=== PATIENT | male | born 1995 | race Caucasian/White ===

== ENCOUNTER → 2018-04-13 15:04 | Outpatient (POV) | payer OTHER, SELFPAY | PROVIDERS: Family Provider Family Medicine; Visit Provider Dentist | DX: Z00.00 Encounter for general adult medical examination without abnormal findings (principal) ==

== ENCOUNTER → 2018-04-27 08:11 | Outpatient (POV) | payer OTHER, SELFPAY | PROVIDERS: Visit Provider Dentist | DX: Z00.00 Encounter for general adult medical examination without abnormal findings (principal) ==

== ENCOUNTER 2020-07-05 10:58 | Emergency (ER) | payer SELFPAY ==
[2020-07-05 11:10] VITALS: BP 136/74; PULSE 81; RESP 20; TEMP 37.1; O2SAT 96; BMI 46.0
--- NOTE | 2020-07-05 11:50 | HMH.EDUTC ---
[facility] [place] Disposition Clinical Impression: Viral illness Disposition: Home, Self-Care Condition on Discharge: Good Instructions: DI for Viral Upper Respiratory Infection -- Adult Additional Instructions: No sign of a bacterial infection. Likely viral. Viruses can take 7-14 days to run their course. Nasal saline and bulb syringe or nose Marie to remove nasal drainage to help with nasal congestion. Hard to eat, drink, sleep with nasal congestion so important to keep this cleaned out. Monitor temp. Tylenol or Motrin as needed for pain or fever Encourage fluids, water, Gatorade, Powerade, Pedialyte if /toddler/child Warm salt water gargles Warm fluids Sore throat lozenges Sleep elevated Humidifier/vaporizer Your covid swabwas sent to lab. These results are typically sent to the primary care. Be sure you follow-up in 2-3 days if no improvement so we can review the results and treat if necessary if you do not have a primary care, I recommend to get 1 but in the meantime, call for results. Follow-up immediately for new or worsening symptoms or no noticeable improvement over the next 48-72 hours. self isolate until test results are known Referrals: Monika Gonzales MD [Primary Care Provider] - Forms: Work/School Release Time of Disposition: 11:55 Medical Decision Making - Alessandro Inquiry Pt receiving controlled substance: No Vital Signs: 07/05/20 11:10 Temperature 98.7 F Temperature Source Oral Pulse Rate [Left Brachial] 81 Respiratory Rate 20 Blood Pressure [Left Arm] 136/74 Blood Pressure Mean [Left Arm] 94 Blood Pressure Source [Left Arm] Automatic Cuff Blood Pressure Position [Left Arm] Sitting 02 Sat by Pulse Oximetry 96 Oxygen Delivery Method Room Air [facility] [place] HPI - General Chief complaint: Urgent Treatment Center Stated complaint: cough,SOA,headache Time Seen by Provider: 07/05/20 11:50 Mode of Arrival: Ambulatory Source of Information: Patient Limitations: No Limitations Description of Symptoms (Recalled from Triage Doc. by RN): PATIENT C/O MILD FEVER, VOMITING, BODY ACHES, CHILLS, CONGESTION, AND RIGHT EAR PAIN X 2 DAYS HEENT Symptoms (Recalled from RN notes): Yes Resp Symptoms (Recalled from RN notes): Yes Skin Symptoms (Recalled from RN notes): No MS Symptoms (Recalled from RN notes): No Functional Status (Recalled from RN notes): WNL - History of Present Illness Provider Complaint: 25 yr old male presents for sore throat, fever 99.8,headache,soa, chills.body aches and fatigue since thurs - Related Data Home Medications Medication Instructions Recorded Confirmed No Known Home Medications 07/29/19 07/05/20 Allergies Allergy/AdvReac Type Severity Reaction Status Date / Time No Known Allergies Allergy Verified 07/29/19 11:19 - Worker's Comp Is this a Worker's Comp case?: No [facility] History - Hepatitis A Screen Drug use history?: No High risk sexual behaviors?: No History of sexually transmitted infection?: No Currently employed?: No Childcare worker?: No Do you have indoor plumbing?: Yes Do you have electricity?: Yes Attestation statement:: This patient has been screened for Hepatitis A risk factors. I have reviewed the patient's past medical history: Yes - Social History Smoking Status: Never smoker Alcohol Intake: never Occupational Status: other ROS Obtained: Yes Systems reviewed as appropriate & no additional complaints - Constitutional Constitutional: Reports system reviewed and no additional complaints, except as docu, Reports body ache, Reports chills, Reports fatigue, Reports fever(s) - Eyes Eyes: Reports system reviewed and no additional complaints, except as docu, Denies dry eyes - ENT Ears, Nose, Mouth, and Throat: Reports system reviewed and no additional complaints, except as docu, Denies facial pain - Cardiovascular Cardiovascular: Reports system reviewed and no additional complaints, except as docu, Denies dyspnea on exertion - Respiratory Resp
[2020-07-05 11:52] VITALS: BP 136/74; PULSE 81; RESP 20; TEMP 37.1; O2SAT 96
--- NOTE | 2020-07-05 18:50 | PC.NURSE ---
patient notified of positive results
[2020-07-05 19:01] LABS: UTC Influenza A Antigen Negative (Negative); UTC Influenza B Antigen Negative (Negative)
== END 2020-07-05 11:59 | disposition home or self-care (01) ==
PROVIDERS: Emergency Provider Nurse Practitioner Family; PCP Family Medicine
DX: U07.1 COVID-19 (principal); B34.9 Viral infection, unspecified
CPT/HCPCS: 87804; 99201; U0003

== ENCOUNTER 2024-09-24 08:49 | Inpatient (IN) | payer BC, SELFPAY ==
[2024-09-24] VITALS (8 sets, daily range): BP systolic 135–185; BP diastolic 68–109; PULSE 102–121; RESP 18–20; TEMP 36.8–37.3; O2SAT 94–100; BMI 54.2; BMI 55.5
--- NOTE | 2024-09-24 09:21 | US_ITS ---
FINAL REPORT CLINICAL HISTORY: RUQ pain, N/V COMPARISON: None FINDINGS: Sonographic images of the right upper quadrant were obtained. The pancreas is partially obscured. There is fatty infiltration of the liver. The gallbladder appears normal without evidence of gallstones.There is no evidence of biliary ductal dilatation.The common duct measures 3 mm. Limited images of the right kidney are unremarkable. IMPRESSION: Fatty changes of the liver. Reviewed, Interpreted and Dictated by Jeff Lugo MD Transcribed by Floresita Simon Authenticated and [facility]
--- NOTE | 2024-09-24 09:23 | ED_ITS ---
Discharge Plan Disposition Patient Disposition: Admitted Condition: Fair Clinical Impressions Clinical Impression: Acute pancreatitis Discharge ED Provider: Elías Coleman General Adult HPI General Chief complaint: Abdominal Pain Stated complaint: abd pain/vomiting x 4 days Time Seen by Provider: 09/24/24 09:15 Mode of Arrival: Ambulatory Source of Information: Patient Limitations: No Limitations Description of Symptoms (Recalled from ER Triage Doc. by RN): ABD PAIN X3-4 DAYS, STARTED VOMITING THIS AM. STATES HE IS HAVING UPPER ABD PAIN THAT IS SHARP AT TIMES. History of Present Illness HPI narrative: Filipe Ramírez is a 29M with no significant past medical history who presents to the emergency department for complaints of upper abdominal pain, nausea and vomiting. Patient states that starting 3 days ago, he developed left upper and right upper quadrant abdominal pain that is sharp in nature. He states that starting today, he is had multiple episodes of nausea and vomiting. He last ate oatmeal last night and that eating seems to make the pain worse. He describes his vomitus as orange in color. He denies any fevers. He states that he does not drink alcohol and has not had issues with his pancreas before. He denies any abdominal surgeries. He denies any diarrhea. He denies any no known sick contacts. Related Data Home Medications ?Medication ?Instructions ?Recorded ?Confirmed No Known Home Medications 07/29/19 09/24/24 Allergies Allergy/AdvReac Type Severity Reaction Status Date / Time No Known Allergies Allergy Verified 09/02/20 16:41 [facility] Disclaimer: The information contained in this section may have been updated after the patient was seen, as this information can be updated by other users. Medical History Left leg injury No significant past medical history Family History Other Prostate cancer Social History Smoking Status: Never smoker alcohol intake: never substance use type: denies use current occupational status: employed Travel in the last 8 weeks: None Have you lived/traveled outside [place] in past 30 days?: No Contact w/someone who lives/traveled outside US past 30 days?: No Exposure to someone with infectious disease in past 14 days?: No Do you have a fever (greater than 100.4 F or 38 C)?: No Have you tested positive for COVID-19: No Exposed to someone with COVID-19 in past 14 days?: No Do you have a sore throat?: No Do you have a cough?: No Do you have any weakness?: No Do you have any diarrhea?: No Are you experiencing any unusual bleeding?: No Do you have any muscle aches/pain?: No Do you have any abdominal pain?: Yes Are you experiencing loss of taste or smell?: No Other Medical History Have you received the Pneumonia Vaccine: No ROS Obtained: Yes Systems reviewed as appropriate & no additional complaints except as documented Physical Exam General General appearance: alert and in no apparent distress Comment: Appears uncomfortable Head Head exam: atraumatic Eye Eye exam: Present normal appearance ENT ENT exam: Present normal external ear exam Neck Neck exam: Present full ROM Chest Chest inspection: Present symmetric chest wall rise Respiratory Respiratory exam: Present normal lung sounds bilaterally; Absent respiratory distress, wheezes or stridor Cardiovascular Cardiovascular exam: Present regular rate and normal rhythm Abdominal Exam Abdominal exam: Present soft, tenderness (Epigastric and right upper quadrant. Positive Pickard sign) and guarding (Focal in RUQ) exam: Present deferred Extremities Exam Extremities exam: Present normal inspection Back Exam Back exam: Present normal inspection Neurological Exam Neurological exam: Present alert and oriented X3 Psychiatric Psychiatric exam: Present normal affect Skin Skin exam: Present warm and dry Medical Decision Making Medical Records Screening: Per USPSTF and CDC recommendations, given the prevalence of disease in our region, it is our hospital?s policy to screen for HIV and viral Hepatitis for all patients aged 18 and over and those with ongoing risk factors. Alessandro Inquiry Pt receiving controlled substance: No Vital Signs: 09/24/24 08:56 09/24/24 09:01 09/24/24 12:16 Temperature 99.0 F 99.0 F Temperature Source Oral Oral Pulse Rate 106 H 102 H Pulse Rate [Right Radial] 106 H Respiratory Rate 20 20 Blood Pressure 153/109 H 185/83 H Blood Pressure [Left Arm] 153/109 H Blood Pressure Mean [Left Arm] 123 Blood Pressure Source Automatic Cuff Blood Pressure Source [Left Arm] Automatic Cuff Blood Pressure Position Sitting Blood Pressure Position [Left Arm] Sitting 02 Sat by Pulse Oximetry 97 97 100 Oxygen Delivery Method Room Air Room Air Room Air 09/24/24 12:57 Temperature 99.0 F Temperature Source Pulse Rate 102 H Pulse Rate [Right Radial] Respiratory Rate 20 Blood Pressure 185/83 H Blood Pressure [Left Arm] Blood Pressure Mean [Left Arm] Blood Pressure Source Blood Pressure Source [Left Arm] Blood Pressure Position Blood Pressure Position [Left Arm] 02 Sat by Pulse Oximetry Oxygen Delivery Method Lab Data Lab Results 09/24/24 09:21: VBG pH 7.39, VBG pCO2 40.4, VBG pO2 42.8 H, VBG HCO3 23.9, VBG Total CO2 25.1, VBG O2 Saturation 82.0 H, VBG Base Excess -1.1, VBG Lactic Acid 1.4 09/24/24 10:06: Lactate Dehydrogenase 205 L 09/24/24 10:26: WBC 19.0 H, RBC 5.16, Hgb 14.3, Hct 43.7, MCV 84.7, MCH 27.7, MCHC 32.7, RDW 13.0, Plt Count 327, MPV 10.3, Neut % (Auto) 76.3, Lymph % (Auto) 13.9, [place] % (Auto) 7.5, Eos % (Auto) 1.3, Baso % (Auto) 0.4, Neut # (Auto) 14.5 H, Lymph # (Auto) 2.7, [place] # (Auto) 1.4 H, Eos # (Auto) 0.2, Baso # (Auto) 0.1, Total Counted 100, Neutrophils % (Manual) 81 H, Lymphocytes % (Manual) 13, Monocytes % (Manual) 5, Eosinophils % (Manual) 1, Platelet Estimate Normal, RBC Morphology Normal, PT 9.8, INR 0.88 L, Sodium 136, Potassium 4.4, Chloride 104, Carbon Dioxide 27, Anion Gap 9.4, BUN 9, Creatinine 0.80, Estimated Creat Clear 151, Estimated GFR 115, Est GFR ( Amer) 139, Glucose 121 H, Calcium 9.6, Total Bilirubin 0.5, AST 26, ALT 30, Alkaline Phosphatase 88, Total Protein 8.6 H, Albumin 4.8, Globulin 3.8 H, Albumin/Globulin Ratio 1.3, Triglycerides 100, C holesterol 204 H, LDL Cholesterol Direct 121.87, VLDL Cholesterol 20, HDL Cholesterol 38 L, Cholesterol/HDL Ratio 5.4 H, Lipase 2447 H, HCV Ab SHAHRAM w/Rflx PCR Qn Negative, HIV Ag/Ab Combo Qual Negative 09/24/24 10:36: SARS-CoV-2 (PCR) Not detected, Influenza A Untype (PCR) Not detected, Influenza Type B (PCR) Not detected 09/24/24 10:26 09/24/24 10:26 Orders (Tests/Meds): ED MEDICATIONS Generic Name Dose Route Start Last Admin Trade Name Freq PRN Reason Stop Dose Admin Enoxaparin Sodium 40 mg 09/24/24 21:00 Enoxaparin 40mg/0.4ml Syringe SUBCUT 10/24/24 20:59 BID ANDRES Lactated Ringer's 1,000 mls @ 100 mls/hr 09/24/24 12:30 09/24/24 13:34 Lactated Ringer's 1000 Ml Bag IV 10/24/24 12:29 100 mls/hr .Q10H ANDRES Administration Morphine Sulfate 4 mg 09/24/24 12:20 Morphine 4mg/Ml Syringe IV 10/24/24 12:19 Q4HP PRN Severe Pain (7-10) Ondansetron HCl 4 mg 09/24/24 12:20 09/24/24 15:25 Ondansetron 4mg/2ml Vial IV 10/24/24 12:19 4 mg Q8HP PRN Administration Nausea Oxycodone/Acetaminophen 1 each 09/24/24 14:50 Oxycodone 5mg W/Apap 325mg Tablet PO 10/24/24 14:49 Q4HP PRN Moderate to Severe Pain (4-10) Sodium Chloride 10 ml 09/24/24 12:30 Sodium Chloride 0.9% 10ml Flush Syringe IV 10/24/24 12:29 NEEDED PRN Maintain IV Site Discontinued Medications Generic Name Dose Route Start Last Admin Trade Name Freq PRN Reason Stop Dose Admin Lactated Ringer's 1,000 mls @ 999 mls/hr 09/24/24 11:25 09/24/24 11:46 Lactated Ringer's 1000 Ml Bag IV 09/24/24 12:25 999 mls/hr .Q1H1M ONE Administration Iopamidol 75 ml 09/24/24 11:40 09/24/24 11:41 Iopamidol-370 (76%);100ml Bottle IV 09/24/24 11:41 75 ml ONCE ONE Administration Morphine Sulfate 2 mg 09/24/24 09:21 09/24/24 10:06 Morphine 2mg/Ml Syringe IV 09/24/24 09:22 2 mg ONCE ONE Administration Morphine Sulfate 4 mg 09/24/24 11:25 09/24/24 11:46 Morphine 4mg/Ml Syringe IV 09/24/24 11:26 4 mg ONCE ONE Administration Ondansetron HCl 4 mg 09/24/24 09:21 09/24/24 10:06 Ondansetron 4mg/2ml Vial IV 09/24/24 09:22 4 mg ONCE ONE Administration Sodium Chloride 10 ml 09/24/24 11:40 09/24/24 11:41 Sodium Chloride 0.9% 10ml Syr (Rad Only) IV 10/24/24 11:39 10 ml NEEDED PRN Administration Maintain IV Site ORDERS Category Date Time Status CT abdomen pelvis w con Stat Cat Scan 09/24/24 11:25 Completed GI consult [Consult to Gastroenterology] [CONS] Routine Cons 09/24/24 12:20 Active US gallbladder Stat Exams 09/24/24 09:21 Completed CBC w/Auto Diff [Complete Blood Count Auto Diff] Stat Lab 09/24/24 10:26 Completed CMP [Comprehensive Metabolic Panel] Stat Lab 09/24/24 10:26 Completed Complete Blood Count Auto Diff AMLAB Lab 09/25/24 06:00 Ordered Comprehensive Metabolic Panel AMLAB Lab 09/25/24 06:00 Ordered HIV Combo Routine Lab 09/24/24 10:26 Completed Hepatitis C Ab Qual. W/ RFX Routine Lab 09/24/24 10:26 Completed LDH [Lactate Dehydrogenase] Stat Lab 09/24/24 10:06 Completed Lipase Stat Lab 09/24/24 10:26 Completed Lipid Panel Stat Lab 09/24/24 10:26 Completed Magnesium AMLAB Lab 09/25/24 06:00 Ordered PT INR [Prothrombin Time INR] Stat Lab 09/24/24 10:26 Completed Rapid PCR Covid and Flu A/B Stat Lab 09/24/24 10:36 Completed VBG [Venous Blood Gas] Stat RT 09/24/24 09:21 Completed Medical Decision Narrative: Filipe Ramírez is a 29M with no significant past medical history, not on any medication, who presents to the emergency department for complaints of upper abdominal pain that is sharp in nature as well as nausea and vomiting. States that the pain is sometimes worsened with eating. He has never had issues like this before in the past. No abdominal surgeries. On arrival, patient is borderline tachycardic but hemodynamically stable. Afebrile. Breathing comfortably on room air. Physical exam, stated above, revealed an overall uncomfortable but nontoxic-appearing male. He has tenderness palpation in all upper quadrants and epigastric region but more focally in the right upper quadrant with positive Pickard sign. Cardiopulmonary exam is unremarkable. Differential diagnosis includes, but is not limited to: Acute pancreatitis, gallstone pancreatitis, choledocholithiasis, acute cholecystitis, biliary colic, peptic ulcer disease, gastritis, among others. Patient's workup in the emergency department included: Gallbladder ultrasound, CMP, CBC, lipase, PT/INR, VBG, COVID/flu swab. Patient was initially treated with IV morphine. Patient's gallbladder ultrasound interpreted by me personally shows evidence of fatty liver but no gallstones within the gallbladder, no dilation of the bile duct, no pericholecystic fluid or gallbladder wall thickening. See radiology report for details. Patient's laboratory studies with leukocytosis of white blood cell count of 19, lactate normal at 1.4, CMP unremarkable and nonactionable with liver enzymes within normal limits. Lipase is significantly elevated 2447. A viral panel is negative. At this point, triglyceride level and cholesterol studies were added. Patient's triglycerides are normal at 100 the patient's total cholesterol is elevated 204 and HDL is low at 38. To rule out necrotizing pancreatitis versus pancreatic abscess, will obtain CT abdomen pelvis with IV contrast. This was interpreted by me personally and demonstrated peripancreatic fat stranding but no evidence of necrotizing pancreatitis or abscess. See radiology report for details. Patient is continuing to have abdominal pain we will give an additional dose of morphine. Due to patient's acute pancreatitis of unknown etiology and continued pain, discussed the patient's case with Dr. Woods for admission and he agreed to admit the patient. Patient was subsequently admitted to the hospital medicine service. Critical Care Critical Care Time Critical Care Time: No
[2024-09-24] MEDS: ONDANSETRON 4MG/2ML VIAL 4 MG IV ×2 (10:06→15:25)
[2024-09-24] MEDS: MORPHINE 2MG/ML SYRINGE 2 MG IV (10:06)
[2024-09-24 10:35] LABS: Basophils # 0.1 K/mm3 (0-0.2); Basophils % 0.4 % (0.1-2.0); Eosinophils # 0.2 K/mm3 (0.0-0.4); Eosinophils % 1.3 % (0.1-12.0); Hematocrit 43.7 % (42.0-52.0); Hemoglobin 14.3 g/dL (14.1-18.0); Lymphocytes # 2.7 K/mm3 (0.7-4.5); Lymphocytes % 13.9 % (10-50); Mean Corpuscular HGB Conc 32.7 g/dL (31.8-35.4); Mean Corpuscular Hemoglobin 27.7 pg (27.0-31.2); Mean Corpuscular Volume 84.7 fl (80-94); Mean Platelet Volume 10.3 fl (7.4-10.4); Monocytes # 1.4 K/mm3 (0.1-1.0); Monocytes % 7.5 % (1.7-9.3); Neutrophils # 14.5 K/mm3 (1.8-7.8); Neutrophils % 76.3 % (37.0-80.0); Platelet Count 327 K/mm3 (142-424); Red Blood Count 5.16 M/mm3 (4.60-6.20)
[2024-09-24 10:36] LABS: Lactate Venous 1.4 mmol/L (0.4-2.0); VBG Base Excess -1.1 mmol/L (-2.4-2.3); VBG HCO3 23.9 mmol/L (23-30); VBG PCO2 40.4 mmol/L (35-51); VBG PH 7.39 mmol/L (7.31-7.41); VBG PO2 42.8 mmol/L (28-40); VBG Total CO2 25.1 mmol/L (23-27)
[2024-09-24 10:38] LABS: Coronavirus 19, PCR Not Detected (NotDetected); Influenza A, PCR Not Detected (NotDetected); Influenza B, PCR Not Detected (NotDetected)
[2024-09-24 10:44] LABS: MANUAL DIFFERENTIAL MANUAL DIFFERENTIAL (MANUAL DIFF)
[2024-09-24 10:59] LABS: Alanine Aminotransferase 30 U/L (12-78); Albumin Level 4.8 g/dl (3.5-5.0); Albumin/Globulin Ratio 1.3 (1.1-1.8); Alkaline Phosphatase 88 U/L (38-126); Anion Gap 9.4 mEq/L (5-15); Aspartate Amino Transferase 26 U/L (17-59); Bilirubin,Total 0.5 mg/dl (0.2-1.3); Blood Urea Nitrogen 9 mg/dl (9-20); Calcium 9.6 mg/dl (8.4-10.2); Carbon Dioxide 27 mmol/L (22.0-30.0); Chloride 104 mmol/L (98-107); Creatinine Clearance Estimated 151 mL/min (50-200); Estimated Glomerular Filt Rate 115 ml/min (>60); GFR (African American) 139 ML/MIN (>60); Globulin 3.8 g/dL (1.3-3.2); Glucose 121 mg/dl (74-100); Potassium 4.4 mmoL/L (3.5-5.1); Sodium 136 mmol/L (136-145); Total Protein,Serum 8.6 g/dl (6.3-8.2)
--- NOTE | 2024-09-24 11:11 | PC.NURSE ---
notified MD cooper lipase
--- NOTE | 2024-09-24 11:25 | CT_ITS ---
FINAL REPORT TECHNIQUE: Oral and IV contrast enhanced exam. This study was performed with techniques to keep radiation doses as low as reasonably achievable, (ALARA). Individualized dose reduction techniques using automated exposure control or adjustment of mA and/or kV according to the patient''s size were employed. CLINICAL HISTORY: Acute pancreatitis COMPARISON: none FINDINGS: Abdomen: No acute density is seen within the lung bases. There is diffuse pancreatic edema with surrounding stranding compatible with pancreatitis. There is no evidence of pancreatic necrosis or pseudocyst. There is no evidence of pancreatic or biliary ductal dilatation. Remaining solid organs are negative. No bowel obstruction is present. There is no free air. No fluid collection is seen. There is no adenopathy. Pelvis: The appendix is normal. Pelvic bowel loops are unremarkable. There is no free fluid. No pelvic mass is seen. IMPRESSION: Uncomplicated pancreatitis. Reviewed, Interpreted and Dictated by Jeff Lugo MD Transcribed by Francisca Hassan Authenticated and . [facility]
[2024-09-24 11:32] LABS: INR 0.88 (0.9-1.1); Prothrombin Time 9.8 seconds (9.2-12.1)
[2024-09-24 11:37] LABS: Lipase 2447 U/L (23-300)
[2024-09-24] MEDS: SODIUM CHLORIDE 0.9% 10ML SYR (RAD ONLY) 10 ML IV (11:41)
[2024-09-24] MEDS: IOPAMIDOL-370 (76%);100ML BOTTLE 75 ML IV (11:41)
[2024-09-24 11:46] LABS: HIV Combo NEGATIVE (Negative)
[2024-09-24] MEDS: LACTATED RINGERS 1000ML 1,000 ML 999 ML IV (11:46)
[2024-09-24] MEDS: MORPHINE 4MG/ML SYRINGE 4 MG IV ×2 (11:46→18:22)
--- NOTE | 2024-09-24 11:53 | PC.NURSE ---
1148- Rounding completed, morphine and LRS administered per order. Patient expresses no needs at this time.
[2024-09-24 11:56] LABS: Hepatitis C Ab Qual. W/ RFX NEGATIVE (Negative)
[2024-09-24 12:08] LABS: Eosinophils % 1 % (0-3); Lymphocytes % 13 % (10-50); Monocytes % 5 % (2-9); Neutrophils % 81 % (42-76); Platelet Estimate Normal; RBC Morphology Normal; Total Cells Counted 100
--- NOTE | 2024-09-24 12:19 | PC.NURSE ---
ER on phone with hospitalist
--- NOTE | 2024-09-24 12:22 | PC.NURSE ---
housekeeper head aware of admission
--- NOTE | 2024-09-24 12:24 | EXP.HP ---
History of Present Illness *Admission Date: 09/24/24 *Reason for visit:: abdominal pain, N/V *History of present illness: Mr. Ramírez is a 29-year-old male with no significant past medical history. Morbidly obese. Presents with onset of abdominal pain Tuesday. Began in his abdomen, radiates to his back. Developed nausea and vomiting today. Denies maria d fever. No new medications. Takes no prescription medications at home. Workup in the ER concerning for pancreatitis with elevated lipase and imaging concerning for peripancreatic fat stranding. Medicine consulted for admission and further management. On arrival to the floor, he is afebrile and hemodynamically stable. Tolerating Jell-O without significant worsening of pain. Received benefit from morphine. No nausea or vomiting at this moment. Stable on room air. Mother at bedside [facility] Disclaimer: The information contained in this section may have been updated after the patient was seen, as this information can be updated by other users. Medical History Left leg injury No significant past medical history Family History Other Prostate cancer Social History Smoking Status: Never smoker alcohol intake: never substance use type: denies use current occupational status: employed Travel in the last 8 weeks: None Have you lived/traveled outside US in past 30 days?: No Contact w/someone who lives/traveled outside US past 30 days?: No Exposure to someone with infectious disease in past 14 days?: No Do you have a fever (greater than 100.4 F or 38 C)?: No Have you tested positive for COVID-19: No Exposed to someone with COVID-19 in past 14 days?: No Do you have a sore throat?: No Do you have a cough?: No Do you have any weakness?: No Do you have any diarrhea?: No Are you experiencing any unusual bleeding?: No Do you have any muscle aches/pain?: No Do you have any abdominal pain?: Yes Are you experiencing loss of taste or smell?: No Other Medical History Have you received the Pneumonia Vaccine: No Review of Systems Review of Systems Review of systems (narrative): 14 point review of systems performed, pertinent positives and negatives as per HPI Meds Home Medications and Allergies Home Medications ?Medication ?Instructions ?Recorded ?Confirmed ?Type No Known Home Medications 07/29/19 09/24/24 History New Prescriptions to Start Prescriptions: Allergies Allergy/AdvReac Type Severity Reaction Status Date / Time No Known Allergies Allergy Verified 09/02/20 16:41 Exam Data for Last 24 hours Vital signs and Labs for Last 24 Hours: Temp Pulse Resp BP Pulse Ox O2 Del Method 99.0 F 102 H 20 185/83 H 100 Room Air 09/24/24 09:01 09/24/24 12:16 09/24/24 09:01 09/24/24 12:16 09/24/24 12:16 09/24/24 12:16 Laboratory Results - last 24 hr 09/24/24 09:21: VBG pH 7.39, VBG pCO2 40.4, VBG pO2 42.8 H, VBG HCO3 23.9, VBG Total CO2 25.1, VBG O2 Saturation 82.0 H, VBG Base Excess -1.1, VBG Lactic Acid 1.4 09/24/24 10:26: WBC 19.0 H, RBC 5.16, Hgb 14.3, Hct 43.7, MCV 84.7, MCH 27.7, MCHC 32.7, RDW 13.0, Plt Count 327, MPV 10.3, Neut % (Auto) 76.3, Lymph % (Auto) 13.9, [place] % (Auto) 7.5, Eos % (Auto) 1.3, Baso % (Auto) 0.4, Neut # (Auto) 14.5 H, Lymph # (Auto) 2.7, [place] # (Auto) 1.4 H, Eos # (Auto) 0.2, Baso # (Auto) 0.1, Total Counted 100, Neutrophils % (Manual) 81 H, Lymphocytes % (Manual) 13, Monocytes % (Manual) 5, Eosinophils % (Manual) 1, Platelet Estimate Normal, RBC Morphology Normal, PT 9.8, INR 0.88 L, Sodium 136, Potassium 4.4, Chloride 104, Carbon Dioxide 27, Anion Gap 9.4, BUN 9, Creatinine 0.80, Estimated Creat Clear 151, Estimated GFR 115, Est GFR ( Amer) 139, Glucose 121 H, Calcium 9.6, Total Bilirubin 0.5, AST 26, ALT 30, Alkaline Phosphatase 88, Total Protein 8.6 H, Albumin 4.8, Globulin 3.8 H, Albumin/Globulin Ratio 1.3, Lipase 2447 H, HCV Ab SHAHRAM w/Rflx PCR Qn Negative, HIV Ag/Ab Combo Qual Negative 09/24/24 10:36: SARS-CoV-2 (PCR) Not detected, Influenza A Untype (PCR) Not detected, Influenza Type B (PCR) Not detected I & O for Last 24 hours: Intake & Output 09/21/24 09/22/24 09/23/24 09/24/24 23:59 23:59 23:59 23:59 Weight 181.437 kg Constitutional Constitutional: mild distress, morbidly obese and cooperative *Routine HEENT Exam Head: Present normocephalic Eye: Present EOMI and PERRL ENT: Present mucous membranes moist *Routine Neck Exam Neck: Present supple; Absent lymphadenopathy *Routine Respiratory Exam Respiratory: Present CTA bilaterally; Absent respiratory distress, rhonchi, stridor, wheezes or crackles *Routine Cardiovascular Exam Cardiovascular: Present RRR *Routine Abdominal Exam Abdominal: Present soft, normoactive bowel sounds and tenderness (Significant left upper quadrant, questionable rebound); Absent distended *Routine Rectal Exam Rectal:: deferred *Routine Genitalia Exam Genitalia:: deferred *Routine Extremities Exam Extremities: Absent cyanosis, clubbing or edema *Routine Skin Exam Skin: Present intact and warm; Absent rash *Routine Neurological Exam Neurological: Present alert, oriented X3 and moving all extremities; Absent altered mental status Assessment and Plan *Assessment and plan (1) Acute pancreatitis: Status: Acute Category: Medical Code(s): K85.90 - Acute pancreatitis without necrosis or infection, unspecified (2) Morbid obesity with BMI of 50.0-59.9, adult: Status: Acute Category: Medical Code(s): E66.01 - Morbid (severe) obesity due to excess calories; Z68.43 - Body mass index [BMI] 50.0-59.9, adult Plan 29-year-old who presents with acute pancreatitis to the ER. Symptoms developed Tuesday, pain is gotten worse with onset of nausea and vomiting today. Discussed case with ER physician, unclear etiology, request admission for further management, pain control, workup with GI. I agreed to admit for further care. Multimodal pain control. Continue IV fluids. Clear diet for today. GI consulted to assist with care. Problems addressed as follows: Acute pancreatitis -Triglycerides 100, patient does not drink alcohol, denies any medications. No recent GLP-1 per his report. Ultrasound obtained in the ER with no gallstone disease. Unclear etiology at this time -GI consulted to assist with care, appreciate their recommendations -Clear liquid diet, monitor tolerance -IV morphine 4 mg as needed every 4 hours and oral oxycodone 5 mg as needed every 4 hours. Monitor for toxicity. -CT per my review showing uncomplicated pancreatitis. Minimal stranding around pancreas. No biliary dilatation -LR to 100 cc an hour. -LDH 205; Low risk for severe pancreatitis at this time - White count elevated 19, likely reactive. Hemoglobin normal at 14.3. Electrolytes normal sodium 136, potassium 4.4, kidney function normal with BUN 9, creatinine 0.8. Glucose 121. No history of diabetes. Liver enzymes normal with bilirubin 0.5, AST 26, ALT 30, alk phos 88. -Lipase 2447 -Repeat CBC, CMP, magnesium ordered for the morning Morbid obesity complicates all aspects of his care Elevated blood pressure, suspect pain response. Will monitor closely however. 148/82. Mild tachycardia response to pain as well Full code Clear liquid diet Lovenox 40 mg SQ twice daily
--- NOTE | 2024-09-24 12:26 | PC.NURSE ---
Milli Ralph RN is going to update pts Mother who is out in the lobby of POC
[2024-09-24 12:30] LABS: Chol/HDL Ratio 5.4 (1-3.5); Cholesterol 204 mg/dl (140-200); HDL Cholesterol 38 mg/dl (40-60); Triglycerides 100 mg/dl (30-150); VLDL Cholesterol 20 mg/dL (0-40)
--- NOTE | 2024-09-24 12:37 | PC.NURSE ---
Report called to Sera CUI
[2024-09-24 12:42] LABS: Direct LDL Cholesterol 121.87 mg/dL (100-129)
--- NOTE | 2024-09-24 12:46 | PC.NURSE ---
pt going to 2nd floor via wheelchair with SRNA.
--- NOTE | 2024-09-24 12:50 | PC.NURSE ---
arrived by w/c from ED
[2024-09-24 13:20] LABS: Lactate Dehydrogenase 205 U/L (313-618)
[2024-09-24] MEDS: LACTATED RINGERS 1000ML 1,000 ML 100 ML IV ×2 (13:34→22:48)
--- NOTE | 2024-09-24 13:35 | PC.NURSE ---
Dr. Woods at bedside
--- NOTE | 2024-09-24 16:07 | PC.NURSE ---
Patient alert and oriented. VSS. Zofran for episode of emesis. Morphine for abdominal pain. Up ad nando. Voiding adequately. Continue IV fluids and clear liquid diet. Awaiting GI consult
[2024-09-24] MEDS: ENOXAPARIN 40MG/0.4ML SYRINGE 40 MG SUBCUT (20:51)
[2024-09-25] MEDS: MORPHINE 4MG/ML SYRINGE 4 MG IV ×3 (03:22→13:46)
[2024-09-25 04:00] VITALS: BMI 55.4
--- NOTE | 2024-09-25 04:42 | PC.NURSE ---
Pt is A/O X 4, he is independent with ambulation and has been going ad nando to BR throughout the shift. Pt was medicated with Morphine X 1 for report of abdominal pain which was effective. He has tolerated clear liquid diet. He has slept on and off through the night.
[2024-09-25 04:53] VITALS: BP 140/83; PULSE 120; TEMP 37.6; O2SAT 94
[2024-09-25 06:40] LABS: Basophils % 0.2 % (0.1-2.0); Eosinophils % 0.1 % (0.1-12.0); Hematocrit 39.3 % (42.0-52.0); Hemoglobin 12.9 g/dL (14.1-18.0); Lymphocytes # 2.1 K/mm3 (0.7-4.5); Lymphocytes % 8.6 % (10-50); Mean Corpuscular HGB Conc 32.8 g/dL (31.8-35.4); Mean Corpuscular Hemoglobin 27.9 pg (27.0-31.2); Mean Corpuscular Volume 85.1 fl (80-94); Mean Platelet Volume 10.5 fl (7.4-10.4); Monocytes # 2.6 K/mm3 (0.1-1.0); Neutrophils # 19.1 K/mm3 (1.8-7.8); Neutrophils % 79.6 % (37.0-80.0); Platelet Count 322 K/mm3 (142-424); Red Blood Count 4.62 M/mm3 (4.60-6.20); Red Cell Distribution Width 13.3 % (11.5-17.5); White Blood Count 23.9 K/mm3 (4.8-10.8)
[2024-09-25 06:47] LABS: MANUAL DIFFERENTIAL MANUAL DIFFERENTIAL (MANUAL DIFF)
[2024-09-25 07:05] LABS: Chloride 101 mmol/L (98-107)
[2024-09-25 07:06] LABS: Albumin Level 4.3 g/dl (3.5-5.0); Potassium 4.1 mmoL/L (3.5-5.1); Sodium 136 mmol/L (136-145)
[2024-09-25 07:08] LABS: Blood Urea Nitrogen 10 mg/dl (9-20); Creatinine Clearance Estimated 151 mL/min (50-200); Estimated Glomerular Filt Rate 115 ml/min (>60); GFR (African American) 139 ML/MIN (>60)
[2024-09-25 07:09] LABS: Alanine Aminotransferase 23 U/L (12-78); Albumin/Globulin Ratio 1.3 (1.1-1.8); Alkaline Phosphatase 83 U/L (38-126); Anion Gap 13.1 mEq/L (5-15); Aspartate Amino Transferase 25 U/L (17-59); Bilirubin,Total 0.6 mg/dl (0.2-1.3); Calcium 8.6 mg/dl (8.4-10.2); Carbon Dioxide 26 mmol/L (22.0-30.0); Globulin 3.4 g/dL (1.3-3.2); Glucose 116 mg/dl (74-100); Magnesium 1.8 mg/dl (1.6-2.3); Total Protein,Serum 7.7 g/dl (6.3-8.2)
[2024-09-25] MEDS: LACTATED RINGERS 1000ML 1,000 ML 100 ML IV (07:32)
[2024-09-25] MEDS: ONDANSETRON 4MG/2ML VIAL 4 MG IV ×2 (07:32→18:26)
--- NOTE | 2024-09-25 07:52 | EXP.GE.CONS ---
History of Present Illness *Admission Date: 09/24/24 *Reason for visit:: Acute pancreatitis *History of present illness: Mr. Ramírez is a 29-year-old gentleman who is admitted with acute pancreatitis. This is his first bout of pancreatitis and his symptoms began Diego evening. He reports epigastric and left upper quadrant abdominal pain. He presented to the emergency department last evening and his white blood cell count was 19,000. His chemistry showed a lipase of 2447. His triglycerides were 100. His serum calcium was 9.6. The patient had normal AST 26, ALT 30, alkaline phosphatase 88 and total bilirubin 0.5. The patient did have abdominal imaging with initial gallbladder ultrasound that showed no gallstones and a fatty liver/steatosis. His subsequent CAT scan showed uncomplicated pancreatitis with some diffuse pancreatic edema and surrounding stranding without pseudocyst, fluid collection or necrosis. The patient reports no alcohol use. He is not on any prescription or [id number] medication or GLP-1 medication. He has had no abdominal trauma or MVA affecting abdomen or abdominal surgery. [facility] Disclaimer: The information contained in this section may have been updated after the patient was seen, as this information can be updated by other users. Medical History Left leg injury No significant past medical history Family History Other Prostate cancer Social History Smoking Status: Never smoker alcohol intake: never substance use type: denies use current occupational status: employed Travel in the last 8 weeks: None Have you lived/traveled outside US in past 30 days?: No Contact w/someone who lives/traveled outside US past 30 days?: No Exposure to someone with infectious disease in past 14 days?: No Do you have a fever (greater than 100.4 F or 38 C)?: No Have you tested positive for COVID-19: No Exposed to someone with COVID-19 in past 14 days?: No Do you have a sore throat?: No Do you have a cough?: No Do you have any weakness?: No Do you have any diarrhea?: No Are you experiencing any unusual bleeding?: No Do you have any muscle aches/pain?: No Do you have any abdominal pain?: Yes Are you experiencing loss of taste or smell?: No Meds Home Medications and Allergies Home Medications ?Medication ?Instructions ?Recorded ?Confirmed ?Type No Known Home Medications 07/29/19 09/24/24 History New Prescriptions to Start Prescriptions: Allergies Allergy/AdvReac Type Severity Reaction Status Date / Time No Known Allergies Allergy Verified 09/02/20 16:41 Exam (Inpt) Vital signs and Labs for Last 24 Hours: Temp Pulse Resp BP Pulse Ox O2 Del Method 99.6 F 120 H 18 140/83 94 L Room Air 09/25/24 04:53 09/25/24 04:53 09/24/24 20:23 09/25/24 04:53 09/25/24 04:53 09/25/24 07:38 Laboratory Results - last 24 hr 09/24/24 09:21: VBG pH 7.39, VBG pCO2 40.4, VBG pO2 42.8 H, VBG HCO3 23.9, VBG Total CO2 25.1, VBG O2 Saturation 82.0 H, VBG Base Excess -1.1, VBG Lactic Acid 1.4 09/24/24 10:06: Lactate Dehydrogenase 205 L 09/24/24 10:26: WBC 19.0 H, RBC 5.16, Hgb 14.3, Hct 43.7, MCV 84.7, MCH 27.7, MCHC 32.7, RDW 13.0, Plt Count 327, MPV 10.3, Neut % (Auto) 76.3, Lymph % (Auto) 13.9, [place] % (Auto) 7.5, Eos % (Auto) 1.3, Baso % (Auto) 0.4, Neut # (Auto) 14.5 H, Lymph # (Auto) 2.7, [place] # (Auto) 1.4 H, Eos # (Auto) 0.2, Baso # (Auto) 0.1, Total Counted 100, Neutrophils % (Manual) 81 H, Lymphocytes % (Manual) 13, Monocytes % (Manual) 5, Eosinophils % (Manual) 1, Platelet Estimate Normal, RBC Morphology Normal, PT 9.8, INR 0.88 L, Sodium 136, Potassium 4.4, Chloride 104, Carbon Dioxide 27, Anion Gap 9.4, BUN 9, Creatinine 0.80, Estimated Creat Clear 151, Estimated GFR 115, Est GFR ( Amer) 139, Glucose 121 H, Calcium 9.6, Total Bilirubin 0.5, AST 26, ALT 30, Alkaline Phosphatase 88, Total Protein 8.6 H, Albumin 4.8, Globulin 3.8 H, Albumin/Globulin Ratio 1.3, Triglycerides 100, Cholesterol 204 H, LDL Cholesterol Direct 121.87, VLDL Cholesterol 20, HDL Cholesterol 38 L, Cholesterol/HDL Ratio 5.4 H, Lipase 2447 H, HCV Ab SHAHRAM w/Rflx PCR Qn Negative, HIV Ag/Ab Combo Qual Negative 09/24/24 10:36: SARS-CoV-2 (PCR) Not detected, Influenza A Untype (PCR) Not detected, Influenza Type B (PCR) Not detected 09/25/24 06:06: WBC 23.9 H* D, RBC 4.62, Hgb 12.9 L, Hct 39.3 L, MCV 85.1, MCH 27.9, MCHC 32.8, RDW 13.3, Plt Count 322, MPV 10.5 H, Neut % (Auto) 79.6, Lymph % (Auto) 8.6 L, [place] % (Auto) 11.0 H, Eos % (Auto) 0.1, Baso % (Auto) 0.2, Neut # (Auto) 19.1 H, Lymph # (Auto) 2.1, [place] # (Auto) 2.6 H, Eos # (Auto) 0.0, Baso # (Auto) 0.0, Sodium 136, Potassium 4.1, Chloride 101, Carbon Dioxide 26, Anion Gap 13.1, BUN 10, Creatinine 0.80, Estimated Creat Clear 151, Estimated GFR 115, Est GFR ( Amer) 139, Glucose 116 H, Calcium 8.6, Magnesium 1.8, Total Bilirubin 0.6, AST 25, ALT 23, Alkaline Phosphatase 83, Total Protein 7.7, Albumin 4.3 D, Globulin 3.4 H, Albumin/Globulin Ratio 1.3 I & O for Labs for Last 24 Hours: Intake & Output 09/22/24 09/23/24 09/24/24 09/25/24 23:59 23:59 23:59 23:59 Intake Total 1040 / 1540 500 / 500 Output Total 300 / 300 Balance 740 / 1240 500 / 500 Weight 409 lb 2 oz 409 lb 2 oz Constitutional: obese GI: Present soft and tenderness Comments:: Normoactive bowel sounds, soft but tenderness in the epigastrium and left upper quadrant, no rebound or guarding, no masses Results Labs 09/25/24 06:06 09/25/24 06:06 Labs: Laboratory Results - last 24 hr 09/24/24 09:21: VBG pH 7.39, VBG pCO2 40.4, VBG pO2 42.8 H, VBG HCO3 23.9, VBG Total CO2 25.1, VBG O2 Saturation 82.0 H, VBG Base Excess -1.1, VBG Lactic Acid 1.4 09/24/24 10:06: Lactate Dehydrogenase 205 L 09/24/24 10:26: WBC 19.0 H, RBC 5.16, Hgb 14.3, Hct 43.7, MCV 84.7, MCH 27.7, MCHC 32.7, RDW 13.0, Plt Count 327, MPV 10.3, Neut % (Auto) 76.3, Lymph % (Auto) 13.9, [place] % (Auto) 7.5, Eos % (Auto) 1.3, Baso % (Auto) 0.4, Neut # (Auto) 14.5 H, Lymph # (Auto) 2.7, [place] # (Auto) 1.4 H, Eos # (Auto) 0.2, Baso # (Auto) 0.1, Total Counted 100, Neutrophils % (Manual) 81 H, Lymphocytes % (Manual) 13, Monocytes % (Manual) 5, Eosinophils % (Manual) 1, Platelet Estimate Normal, RBC Morphology Normal, PT 9.8, INR 0.88 L, Sodium 136, Potassium 4.4, Chloride 104, Carbon Dioxide 27, Anion Gap 9.4, BUN 9, Creatinine 0.80, Estimated Creat Clear 151, Estimated GFR 115, Est GFR ( Amer) 139, Glucose 121 H, Calcium 9.6, Total Bilirubin 0.5, AST 26, ALT 30, Alkaline Phosphatase 88, Total Protein 8.6 H, Albumin 4.8, Globulin 3.8 H, Albumin/Globulin Ratio 1.3, Triglycerides 100, Cholesterol 204 H, LDL Cholesterol Direct 121.87, VLDL Cholesterol 20, HDL Cholesterol 38 L, Cholesterol/HDL Ratio 5.4 H, Lipase 2447 H, HCV Ab SHAHRAM w/Rflx PCR Qn Negative, HIV Ag/Ab Combo Qual Negative 09/24/24 10:36: SARS-CoV-2 (PCR) Not detected, Influenza A Untype (PCR) Not detected, Influenza Type B (PCR) Not detected 09/25/24 06:06: WBC 23.9 H* D, RBC 4.62, Hgb 12.9 L, Hct 39.3 L, MCV 85.1, MCH 27.9, MCHC 32.8, RDW 13.3, Plt Count 322, MPV 10.5 H, Neut % (Auto) 79.6, Lymph % (Auto) 8.6 L, [place] % (Auto) 11.0 H, Eos % (Auto) 0.1, Baso % (Auto) 0.2, Neut # (Auto) 19.1 H, Lymph # (Auto) 2.1, [place] # (Auto) 2.6 H, Eos # (Auto) 0.0, Baso # (Auto) 0.0, Sodium 136, Potassium 4.1, Chloride 101, Carbon Dioxide 26, Anion Gap 13.1, BUN 10, Creatinine 0.80, Estimated Creat Clear 151, Estimated GFR 115, Est GFR ( Amer) 139, Glucose 116 H, Calcium 8.6, Magnesium 1.8, Total Bilirubin 0.6, AST 25, ALT 23, Alkaline Phosphatase 83, Total Protein 7.7, Albumin 4.3 D, Globulin 3.4 H, Albumin/Globulin Ratio 1.3 Assessment and Plan *Assessment and plan (1) Acute pancreatitis: Status: Acute Category: Medical Code(s): K85.90 - Acute pancreatitis without necrosis or infection, unspecified Plan 1. Acute pancreatitis (mild) with no discernible etiology. He has no prior bouts of pancreatitis and no family history. He has no gallstones, alcohol, elevated triglycerides or elevated calcium. He is not on any home medications or herbal medication. I would consider possible infection etiologies such as coxsackievirus. This can also occur with CMV. I would also consider checking for any anatomic pancreatic anomalies and would recommend MRCP. Approximately 25 to 30% of patients with acute pancreatitis have no obvious identifiable etiology after an extensive workup. Emerging data indicates that the majority of patients with idiopathic acute or recurrent acute pancreatitis have underlying genetic risk profiles.
[2024-09-25 08:00] VITALS: BP 126/69; PULSE 119; RESP 20; TEMP 37.2; O2SAT 93
--- NOTE | 2024-09-25 08:00 | MR_ITS ---
FINAL REPORT CLINICAL HISTORY: idiopathic pancreatitis-rule out anatomic anomaly COMPARISON: 09/24/2024 CT abdomen and pelvis FINDINGS: Multiplanar MR imaging of the abdomen was performed without and with contrast. MRCP protocol utilized. There is diffuse pancreatic enlargement with associated edema and stranding compatible with pancreatitis. There is no evidence of biliary ductal dilatation or choledocholithiasis. The gallbladder is unremarkable. Remaining solid organs are negative. There is no evidence of mass or abnormal enhancement. No pseudocysts are seen. IMPRESSION: Diffuse pancreatitis, similar to recent CT scan, without evidence of pancreatic pseudocyst or necrosis. No evidence of biliary ductal dilatation or choledocholithiasis. Reviewed, Interpreted and Dictated by Jeff Lugo MD Transcribed by Francisca Hassan Authenticated and [facility]
--- NOTE | 2024-09-25 08:19 | HMH.ITSTN ---
UNABLE TO DO MRI UNTIL NOON DUE TO PATIENT EATING AND DRINKING
[2024-09-25 08:32] LABS: Lymphocytes % 12 % (10-50); Monocytes % 5 % (2-9); Neutrophils % 83 % (42-76); Platelet Estimate Normal; RBC Morphology Normal; Total Cells Counted 100
[2024-09-25] MEDS: ENOXAPARIN 40MG/0.4ML SYRINGE 40 MG SUBCUT ×2 (09:22→20:29)
[2024-09-25 09:39] LABS: Procalcitonin 0.262 ng/mL (0.0-2.0)
--- NOTE | 2024-09-25 12:05 | PC.NURSE ---
Pt to MRI for MRCP
--- NOTE | 2024-09-25 13:16 | PC.NURSE ---
[facility]
[2024-09-25] MEDS: GADOTERIDOL INJ 10ML SYRINGE 10 ML IV (13:24)
[2024-09-25] MEDS: GADOTERIDOL INJ 20ML SYRINGE 20 ML IV (13:24)
[2024-09-25] MEDS: 0.9 % SODIUM CHLORIDE 50 ML VIAL IV (13:24)
[2024-09-25 16:00] VITALS: BP 125/76; PULSE 125; RESP 18; TEMP 37.9; O2SAT 95
--- NOTE | 2024-09-25 16:11 | PC.NURSE ---
Patient alert and oriented. VSS. Up ad nando. Morphine prn for pain. Zofran prn for nausea. Patient npo for MRCP this am. Tolerating small amounts of liquids. Up to BR for voids. IV fluids infusing per orders.
--- NOTE | 2024-09-25 17:56 | EXP.PN ---
Subjective *Date: 09/25/24 *Time: 17:56 Interval history: Patient continues to have abdominal pain, nausea. Trying to eat, but did have nausea today. MRCP relatively normal other than pancreatitis. Will liquid diet, advance as quickly as tolerated. Exam Data for Last 24 hours Vital signs and Labs for Last 24 Hours: Temp Pulse Resp BP Pulse Ox O2 Del Method 100.2 F H 125 H 18 125/76 95 Room Air 09/25/24 16:00 09/25/24 16:00 09/25/24 16:00 09/25/24 16:00 09/25/24 16:00 09/25/24 17:00 Laboratory Results - last 24 hr 09/25/24 06:00: Procalcitonin 0.262 09/25/24 06:06: WBC 23.9 H* D, RBC 4.62, Hgb 12.9 L, Hct 39.3 L, MCV 85.1, MCH 27.9, MCHC 32.8, RDW 13.3, Plt Count 322, MPV 10.5 H, Neut % (Auto) 79.6, Lymph % (Auto) 8.6 L, [place] % (Auto) 11.0 H, Eos % (Auto) 0.1, Baso % (Auto) 0.2, Neut # (Auto) 19.1 H, Lymph # (Auto) 2.1, [place] # (Auto) 2.6 H, Eos # (Auto) 0.0, Baso # (Auto) 0.0, Total Counted 100, Neutrophils % (Manual) 83 H, Lymphocytes % (Manual) 12, Monocytes % (Manual) 5, Platelet Estimate Normal, RBC Morphology Normal, Sodium 136, Potassium 4.1, Chloride 101, Carbon Dioxide 26, Anion Gap 13.1, BUN 10, Creatinine 0.80, Estimated Creat Clear 151, Estimated GFR 115, Est GFR ( Amer) 139, Glucose 116 H, Calcium 8.6, Magnesium 1.8, Total Bilirubin 0.6, AST 25, ALT 23, Alkaline Phosphatase 83, Total Protein 7.7, Albumin 4.3 D, Globulin 3.4 H, Albumin/Globulin Ratio 1.3 I & O for Last 24 hours: Intake & Output 09/22/24 09/23/24 09/24/24 09/25/24 23:59 23:59 23:59 23:59 Intake Total 1040 / 1540 1463 / 1463 Output Total 300 / 300 0 / 0 Balance 740 / 1240 1463 / 1463 Weight 185.576 kg 185.576 kg Constitutional Constitutional: no acute distress *Routine HEENT Exam Head: Present normocephalic Eye: Present EOMI and PERRL ENT: Present mucous membranes moist *Routine Neck Exam Neck: Present supple; Absent lymphadenopathy *Routine Respiratory Exam Respiratory: Present CTA bilaterally *Routine Cardiovascular Exam Cardiovascular: Present RRR *Routine Abdominal Exam Abdominal: Present soft, normoactive bowel sounds and tenderness Comments: Epigastric tenderness to palpation without peritoneal signs. *Routine Extremities Exam Extremities: Absent cyanosis, clubbing or edema *Routine Skin Exam Skin: Present warm; Absent rash *Routine Neurological Exam Neurological: Present alert and oriented X3 Assessment and Plan *Assessment and plan (1) Acute pancreatitis: Status: Acute Category: Medical Code(s): K85.90 - Acute pancreatitis without necrosis or infection, unspecified (2) Morbid obesity with BMI of 50.0-59.9, adult: Status: Acute Category: Medical Code(s): E66.01 - Morbid (severe) obesity due to excess calories; Z68.43 - Body mass index [BMI] 50.0-59.9, adult Plan Patient is a 29-year-old who presented with abdominal pain, nausea/vomiting and admitted for acute pancreatitis. #Acute pancreatitis - Lipase 2447. Triglycerides 100, patient does not drink alcohol, denies any medications. Calcium normal. No recent GLP-1 per his report. No scorpion bite. ? GI consulted, recommended MRCP which revealed diffuse pancreatitis without cholelithiasis, choledocholithiasis, pancreatic pseudocyst/necrosis. ? Patient is tachycardic to 125, 100.2 Fahrenheit, with WBC 23.9 today. Likely inflammatory from pancreatitis. Continue to monitor. ? LDH 205; Low risk for severe pancreatitis at this time. ? Full liquid diet, advance as quickly as tolerated. ? IV LR at 125 mL/h. ? Morphine, [place] as needed for pain control. Morbid obesity complicates all aspects of his care. Full code Clear liquid diet Lovenox 40 mg SQ twice daily
[2024-09-25] MEDS: LACTATED RINGERS 1000ML 1,000 ML 125 ML IV (18:17)
[2024-09-25] MEDS: OXYCODONE 5MG W/APAP 325MG TABLET 1 EACH PO (19:52)
[2024-09-25 20:00] VITALS: BP 129/81; PULSE 125; RESP 16; TEMP 36.9; O2SAT 93
[2024-09-26] MEDS: LACTATED RINGERS 1000ML 1,000 ML 125 ML IV ×3 (01:28→19:47)
[2024-09-26] MEDS: OXYCODONE 5MG W/APAP 325MG TABLET 1 EACH PO ×3 (03:57→20:18)
[2024-09-26 04:00] VITALS: BP 139/74; PULSE 123; RESP 19; TEMP 36.7; O2SAT 98; BMI 55.7
--- NOTE | 2024-09-26 04:18 | PC.NURSE ---
Pt is A/O X 4 and continues to be independent with ambulation. He has tolerated his full liquid diet. He has not had any complaints of N/V this shift. Pt has been medicated with Oxycodone/APAP per SEP X 2 this shift for complaints of abdominal pain which has been effective. Pt slept in the chair through the night as he reports being more comfortable. Voiding without difficulty, no BM. Noted pt tachy with HR 120s
[2024-09-26 06:14] LABS: Basophils # 0.1 K/mm3 (0-0.2); Basophils % 0.2 % (0.1-2.0); Eosinophils % 0.1 % (0.1-12.0); Hematocrit 35.4 % (42.0-52.0); Lymphocytes # 2.5 K/mm3 (0.7-4.5); Lymphocytes % 8.9 % (10-50); Mean Corpuscular HGB Conc 32.8 g/dL (31.8-35.4); Mean Corpuscular Volume 85.3 fl (80-94); Mean Platelet Volume 10.6 fl (7.4-10.4); Monocytes % 10.9 % (1.7-9.3); Neutrophils # 21.8 K/mm3 (1.8-7.8); Neutrophils % 78.6 % (37.0-80.0); Platelet Count 291 K/mm3 (142-424); Red Blood Count 4.15 M/mm3 (4.60-6.20); Red Cell Distribution Width 13.2 % (11.5-17.5); White Blood Count 27.8 K/mm3 (4.8-10.8)
[2024-09-26 06:15] LABS: MANUAL DIFFERENTIAL MANUAL DIFFERENTIAL (MANUAL DIFF)
[2024-09-26 06:20] LABS: Hemoglobin 11.8 g/dL (14.1-18.0)
[2024-09-26 06:49] LABS: Albumin Level 3.8 g/dl (3.5-5.0); Chloride 99 mmol/L (98-107); Potassium 4.1 mmoL/L (3.5-5.1); Sodium 135 mmol/L (136-145)
[2024-09-26 06:52] LABS: Alanine Aminotransferase 20 U/L (12-78); Albumin/Globulin Ratio 1.2 (1.1-1.8); Alkaline Phosphatase 78 U/L (38-126); Anion Gap 12.1 mEq/L (5-15); Aspartate Amino Transferase 25 U/L (17-59); Bilirubin,Total 0.8 mg/dl (0.2-1.3); Blood Urea Nitrogen 10 mg/dl (9-20); Calcium 8.2 mg/dl (8.4-10.2); Carbon Dioxide 28 mmol/L (22.0-30.0); Creatinine Clearance Estimated 172 mL/min (50-200); Estimated Glomerular Filt Rate 134 ml/min (>60); GFR (African American) 162 ML/MIN (>60); Globulin 3.3 g/dL (1.3-3.2); Glucose 124 mg/dl (74-100); Magnesium 1.8 mg/dl (1.6-2.3); Total Protein,Serum 7.1 g/dl (6.3-8.2)
[2024-09-26 08:00] VITALS: BP 133/80; PULSE 111; RESP 17; TEMP 36.8; O2SAT 99
[2024-09-26 08:05] LABS: Lymphocytes % 10 % (10-50); Monocytes % 9 % (2-9); Neutrophils % 81 % (42-76); Total Cells Counted 100
[2024-09-26 08:08] LABS: Platelet Estimate Normal; RBC Morphology Normal
--- NOTE | 2024-09-26 08:17 | XR_ITS ---
FINAL REPORT CLINICAL HISTORY: sepsis w/u COMPARISON: None FINDINGS: No acute pulmonary opacity is present. There is no evidence of effusion or pneumothorax. Mediastinum is unremarkable. Heart size is normal. IMPRESSION: No acute abnormality. Reviewed, Interpreted and Dictated by Jeff Lugo MD Transcribed by Floresita Simon Authenticated and [facility]
[2024-09-26] MEDS: ENOXAPARIN 40MG/0.4ML SYRINGE 40 MG SUBCUT ×2 (08:54→20:14)
[2024-09-26 08:58] LABS: Erythrocyte Sedimentation Rate 71 mm/hr (0-15)
[2024-09-26 09:36] LABS: C-Reactive Protein 368.8 mg/L (0-4)
[2024-09-26 09:45] LABS: Adenovirus,PCR Not Detected (NotDetected); Bordetella Pertussis Not Detected (NotDetected); Chlamydophila Pneumoniae, PCR Not Detected (NotDetected); Coronavirus 19, PCR Not Detected (NotDetected); Coronavirus 229E Not Detected (NotDetected); Coronavirus NL63 Not Detected (NotDetected); Coronavirus OC43 Not Detected (NotDetected); Coronovirus HKU1,PCR Not Detected (NotDetected); Human Metapneumovirus Not Detected (NotDetected); Influenza A, PCR Not Detected (NotDetected); Influenza AH1, 2009 Not Detected (NotDetected); Influenza AH1, PCR Not Detected (NotDetected); Influenza AH3,PCR Not Detected (NotDetected); Influenza B, PCR Not Detected (NotDetected); Mycoplasma Pneumoniae, PCR Not Detected (NotDetected); Parainfluenza 1, PCR Not Detected (NotDetected); Parainfluenza 2, PCR Not Detected (NotDetected); Parainfluenza 3, PCR Not Detected (NotDetected); Parainfluenza 4, PCR Not Detected (NotDetected); Respiratory Syncytial Virus Not Detected (NotDetected); Rhinovirus/Enterovirus Not Detected (NotDetected)
[2024-09-26 09:59] LABS: Procalcitonin 0.701 ng/mL (0.0-2.0)
--- NOTE | 2024-09-26 10:50 | EXP.MED.FU ---
Subjective *Date: 09/26/24 *Time: 16:26 Interval history: Patient seen sitting up in the chair, has been able to drink fluids, is ready to try solid foods. Abdominal pain slightly improved but not resolved. raw stock drier tender to palpation across upper abdomen mostly left upper quadrant. Patient is not had a bowel movement in several days. Did develop temperature of 100.2 last night, normal temp throughout the day today, white blood cell count up to 27.8. Glucose and sodium levels well-controlled. MRCP showed only acute pancreatitis and uncomplicated. No pseudocyst or mass or abnormal bile ducts. Exam Data for Last 24 hours Vital signs and Labs for Last 24 Hours: Temp Pulse Resp BP Pulse Ox O2 Del Method 98.2 F 111 H 17 133/80 99 Room Air 09/26/24 08:00 09/26/24 08:00 09/26/24 08:00 09/26/24 08:00 09/26/24 08:00 09/26/24 09:00 Laboratory Results - last 24 hr 09/26/24 05:45: WBC 27.8 H*, RBC 4.15 L, Hgb 11.8 L, Hct 35.4 L, MCV 85.3, MCH 28.0, MCHC 32.8, RDW 13.2, Plt Count 291, MPV 10.6 H, Neut % (Auto) 78.6, Lymph % (Auto) 8.9 L, [place] % (Auto) 10.9 H, Eos % (Auto) 0.1, Baso % (Auto) 0.2, Neut # (Auto) 21.8 H, Lymph # (Auto) 2.5, [place] # (Auto) 3.0 H, Eos # (Auto) 0.0, Baso # (Auto) 0.1, Total Counted 100, Neutrophils % (Manual) 81 H, Lymphocytes % (Manual) 10, Monocytes % (Manual) 9, Platelet Estimate Normal, RBC Morphology Normal, ESR 71 H, Sodium 135 L, Potassium 4.1, Chloride 99, Carbon Dioxide 28, Anion Gap 12.1, BUN 10, Creatinine 0.70, Estimated Creat Clear 172, Estimated GFR 134, Est GFR ( Amer) 162, Glucose 124 H, Calcium 8.2 L, Magnesium 1.8, Total Bilirubin 0.8, AST 25, ALT 20, Alkaline Phosphatase 78, Total Protein 7.1, Albumin 3.8 D, Globulin 3.3 H, Albumin/Globulin Ratio 1.2 09/26/24 08:36: C-Reactive Protein 368.8 H, Procalcitonin 0.701 I & O for Last 24 hours: Intake & Output 09/23/24 09/24/24 09/25/24 09/26/24 11:59 11:59 11:59 11:59 Intake Total 1540 3963 Output Total 300 0 Balance 1240 3963 Weight 181.437 kg 185.576 kg 186.744 kg Assessment and Plan *Assessment and plan (1) Acute pancreatitis: Status: Acute Category: Medical Code(s): K85.90 - Acute pancreatitis without necrosis or infection, unspecified (2) Morbid obesity with BMI of 50.0-59.9, adult: Status: Acute Category: Medical Code(s): E66.01 - Morbid (severe) obesity due to excess calories; Z68.43 - Body mass index [BMI] 50.0-59.9, adult (3) Epigastric pain: Status: Acute Category: Medical Code(s): R10.13 - Epigastric pain Plan 1. Acute pancreatitis Improved epigastric pain. White blood cell count is up to 27.8 with a mild temperature of 100.2 and patient is tachycardic. No obvious etiology for the pancreatitis. This can occur in a good number of acute pancreatitis episodes. If he has recurrence, may consider testing for autoimmune or genetic concerns. MRCP shows only uncomplicated acute pancreatitis without confounding abnormalities. I recommend continued IV hydration plus advancing oral nutrition. I recommend the addition of daily MiraLAX if the patient does not move his bowels tomorrow.
[2024-09-26] MEDS: IBUPROFEN 400 MG TABLET PO ×2 (12:40→19:47)
[2024-09-26 13:36] LABS: Microscopic, Urine URINE MICROSCOPIC (MICROSCOPIC)
[2024-09-26 13:56] LABS: Appearance,Urine CLEAR (Clear); Blood, Urine TRACE-I (Negative); Color,Urine YELLOW (Yellow); Glucose,Urine (UA) Negative (Negative); Ketones,Urine Negative (Negative); Leukocyte Esterase,Urine Negative (Negative); Nitrate,Urine Negative (Negative); Protein,Urine 2+ (Negative); Specific Gravity, Urine 1.025 (1.005-1.030)
[2024-09-26 14:05] LABS: Bilirubin,Urine 1+ (Negative)
[2024-09-26 14:06] LABS: RBC,Urine Occasional #/hpf (0-3); WBC,Urine Occasional #/hpf (0-3)
[2024-09-26 14:07] LABS: Bacteria,Urine Trace /lpf
--- NOTE | 2024-09-26 15:38 | P.PN_ITS ---
Subjective *Date: 09/26/24 *Time: 15:38 Interval history: Patient is doing better today overall, less epigastric pain and tolerating diet more. WBC did bump to 27, will continue monitor. Septic workup so far normal. Exam Data for Last 24 hours Vital signs and Labs for Last 24 Hours: Temp Pulse Resp BP Pulse Ox O2 Del Method 98.2 F 111 H 17 133/80 99 Room Air 09/26/24 08:00 09/26/24 08:00 09/26/24 08:00 09/26/24 08:00 09/26/24 08:00 09/26/24 13:00 Laboratory Results - last 24 hr 09/26/24 05:45: WBC 27.8 H*, RBC 4.15 L, Hgb 11.8 L, Hct 35.4 L, MCV 85.3, MCH 28.0, MCHC 32.8, RDW 13.2, Plt Count 291, MPV 10.6 H, Neut % (Auto) 78.6, Lymph % (Auto) 8.9 L, [place] % (Auto) 10.9 H, Eos % (Auto) 0.1, Baso % (Auto) 0.2, Neut # (Auto) 21.8 H, Lymph # (Auto) 2.5, [place] # (Auto) 3.0 H, Eos # (Auto) 0.0, Baso # (Auto) 0.1, Total Counted 100, Neutrophils % (Manual) 81 H, Lymphocytes % (Manual) 10, Monocytes % (Manual) 9, Platelet Estimate Normal, RBC Morphology Normal, ESR 71 H, Sodium 135 L, Potassium 4.1, Chloride 99, Carbon Dioxide 28, Anion Gap 12.1, BUN 10, Creatinine 0.70, Estimated Creat Clear 172, Estimated GFR 134, Est GFR ( Amer) 162, Glucose 124 H, Calcium 8.2 L, Magnesium 1.8, Total Bilirubin 0.8, AST 25, ALT 20, Alkaline Phosphatase 78, Total Protein 7.1, Albumin 3.8 D, Globulin 3.3 H, Albumin/Globulin Ratio 1.2 09/26/24 08:36: C-Reactive Protein 368.8 H, Procalcitonin 0.701 09/26/24 09:42: Chlamy pneumoniae PCR Not detected, Adenovirus (PCR) Not detected, B. pertussis DNA (PCR) Not detected, Coronavirus OC43 (PCR) Not detected, Coronavirus HKU1 (PCR) Not detected, Coronavirus 229E (PCR) Not detected, SARS-CoV-2 (PCR) Not detected, Coronavirus NL63 (PCR) Not detected, Human Metapneumovir PCR Not detected, Influenza A (H1) PCR Not detected, Influ A (H1N1/09) PCR Not detected, Influenza A (H3) PCR Not detected, Influenza Type A (PCR) Not detected, Influenza Type B (PCR) Not detected, M. pneumoniae (PCR) Not detected, Parainfluenza 1 (PCR) Not detected, Parainfluenza 2 (PCR) Not detected, Parainfluenza 3 (PCR) Not detected, Parainfluenza 4 (PCR) Not detected, RSV (PCR) Not detected, Entero/Rhino (PCR) Not detected 09/26/24 13:28: Urine Color Yellow, Urine Appearance Clear, Urine pH 7.0, Ur Specific [place] 1.025, Urine Protein 2+ A, Urine Glucose (UA) Negative, Urine Ketones Negative, Urine Blood Trace-i, Urine Nitrate Negative, Urine Bilirubin 1+ A, Urine Urobilinogen 1.0, Ur Leukocyte Esterase Negative, Urine RBC Occasional, Urine WBC Occasional, Ur Squamous Epith Cells 5-10, Urine Bacteria Trace I & O for Last 24 hours: Intake & Output 09/23/24 09/24/24 09/25/24 09/26/24 23:59 23:59 23:59 23:59 Intake Total 1040 / 1540 1703 / 2353 3120 / 3120 Output Total 300 / 300 0 / 0 0 / 0 Balance 740 / 1240 1703 / 2353 3120 / 3120 Weight 185.576 kg 185.576 kg 186.744 kg Constitutional Constitutional: no acute distress *Routine HEENT Exam Head: Present normocephalic Eye: Present EOMI and PERRL ENT: Present mucous membranes moist *Routine Neck Exam Neck: Present supple; Absent lymphadenopathy *Routine Respiratory Exam Respiratory: Present CTA bilaterally *Routine Cardiovascular Exam Cardiovascular: Present RRR *Routine Abdominal Exam Abdominal: Present soft and normoactive bowel sounds; Absent tenderness *Routine Extremities Exam Extremities: Absent cyanosis, clubbing or edema *Routine Skin Exam Skin: Present warm; Absent rash *Routine Neurological Exam Neurological: Present alert and oriented X3 Assessment and Plan *Assessment and plan (1) Acute pancreatitis: Status: Acute Category: Medical Code(s): K85.90 - Acute pancreatitis without necrosis or infection, unspecified (2) Morbid obesity with BMI of 50.0-59.9, adult: Status: Acute Category: Medical Code(s): E66.01 - Morbid (severe) obesity due to excess calories; Z68.43 - Body mass index [BMI] 50.0-59.9, adult Plan Patient is a 29-year-old who presented with abdominal pain, nausea/vomiting and admitted for acute pancreatitis. #Acute pancreatitis - Initial lipase 2447. Triglycerides 100, patient does not drink alcohol, denies any medications. Calcium normal. No recent GLP-1 per his report. No scorpion bite. ? GI consulted, recommended MRCP which revealed diffuse pancreatitis without cholelithiasis, choledocholithiasis, pancreatic pseudocyst/necrosis. ? WBC increased to 27 today, continues to be tachycardic. Likely inflammatory from pancreatitis as no signs of infection. CXR, UA normal. Follow-up blood cultures. ? Overall, patient is doing better today. Tolerating diet more, less epigastric pain. ? LDH 205; Low risk for severe pancreatitis at this time. ? Advance to low-fat diet today. ? IV LR at 125 mL/h. ? Morphine, [place] as needed for pain control. Morbid obesity complicates all aspects of his care. Full code Clear liquid diet Lovenox 40 mg SQ twice daily
[2024-09-26] MEDS: MAGNESIUM SULFATE IN WATER 2 GM/50 ML PIGGYBACK IV (15:42)
[2024-09-26 16:00] VITALS: BP 129/81; PULSE 94; RESP 16; TEMP 36.7; O2SAT 94
[2024-09-26 20:00] VITALS: BP 131/79; PULSE 105; RESP 16; TEMP 37.1; O2SAT 96
[2024-09-27] VITALS: BP 119/68; PULSE 94; RESP 16; TEMP 36.7; O2SAT 95
[2024-09-27] MEDS: LACTATED RINGERS 1000ML 1,000 ML 125 ML IV (03:11)
[2024-09-27 04:00] VITALS: BP 127/71; PULSE 95; RESP 16; TEMP 36.7; O2SAT 95; BMI 25.2
--- NOTE | 2024-09-27 05:02 | PC.NURSE ---
Pt A&OX4 and has tolerated room air. Lung sounds clear and bowel sounds active. He did complain of abdominal pain once and was medicated per MAR. Tolerating diet well with no complaints of N/V. He has ambulated room independently. LR going @125. No complaints at this time, call light within reach.
[2024-09-27 07:08] LABS: Basophils # 0.1 K/mm3 (0-0.2); Basophils % 0.5 % (0.1-2.0); Eosinophils # 0.6 K/mm3 (0.0-0.4); Eosinophils % 3.7 % (0.1-12.0); Hematocrit 34.5 % (42.0-52.0); Hemoglobin 11.2 g/dL (14.1-18.0); Lymphocytes # 2.7 K/mm3 (0.7-4.5); Lymphocytes % 15.9 % (10-50); Mean Corpuscular HGB Conc 32.5 g/dL (31.8-35.4); Mean Corpuscular Hemoglobin 28.1 pg (27.0-31.2); Mean Corpuscular Volume 86.5 fl (80-94); Mean Platelet Volume 10.6 fl (7.4-10.4); Monocytes # 1.5 K/mm3 (0.1-1.0); Monocytes % 8.6 % (1.7-9.3); Neutrophils # 12.1 K/mm3 (1.8-7.8); Neutrophils % 70.7 % (37.0-80.0); Platelet Count 269 K/mm3 (142-424); Red Blood Count 3.99 M/mm3 (4.60-6.20); White Blood Count 17.2 K/mm3 (4.8-10.8)
[2024-09-27 07:12] LABS: MANUAL DIFFERENTIAL MANUAL DIFFERENTIAL (MANUAL DIFF)
[2024-09-27 07:38] LABS: Alanine Aminotransferase 20 U/L (12-78); Albumin Level 3.5 g/dl (3.5-5.0); Albumin/Globulin Ratio 1.1 (1.1-1.8); Alkaline Phosphatase 101 U/L (38-126); Anion Gap 10.8 mEq/L (5-15); Aspartate Amino Transferase 40 U/L (17-59); Bilirubin,Total 0.4 mg/dl (0.2-1.3); Blood Urea Nitrogen 9 mg/dl (9-20); Calcium 8.1 mg/dl (8.4-10.2); Carbon Dioxide 23 mmol/L (22.0-30.0); Chloride 104 mmol/L (98-107); Creatinine Clearance Estimated 188 mL/min (50-200); Estimated Glomerular Filt Rate 134 ml/min (>60); GFR (African American) 162 ML/MIN (>60); Globulin 3.2 g/dL (1.3-3.2); Glucose 88 mg/dl (74-100); Magnesium 2.3 mg/dl (1.6-2.3); Potassium 3.8 mmoL/L (3.5-5.1); Sodium 134 mmol/L (136-145); Total Protein,Serum 6.7 g/dl (6.3-8.2)
[2024-09-27 08:00] VITALS: BP 124/73; PULSE 99; RESP 17; TEMP 36.9; O2SAT 95
[2024-09-27] MEDS: ENOXAPARIN 40MG/0.4ML SYRINGE 40 MG SUBCUT (08:57)
--- NOTE | 2024-09-27 09:40 | P.PN_ITS ---
Subjective *Date: 09/27/24 *Time: 13:58 Interval history: Patient sitting up in bed, alert and oriented, no acute distress. Has been able to eat without nausea. Has had interval improvement in abdominal discomfort. No tenderness to palpation on exam. Quite distended with gas bloat. No bowel movement since Tuesday. White blood cell improved overnight. No fever overnight. Exam Data for Last 24 hours Vital signs and Labs for Last 24 Hours: Temp Pulse Resp BP Pulse Ox O2 Del Method 98.1 F 95 H 16 127/71 95 Room Air 09/27/24 04:00 09/27/24 04:00 09/27/24 04:00 09/27/24 04:00 09/27/24 04:00 09/27/24 07:43 Laboratory Results - last 24 hr 09/26/24 08:36: Procalcitonin 0.701 09/26/24 09:42: Chlamy pneumoniae PCR Not detected, Adenovirus (PCR) Not detected, B. pertussis DNA (PCR) Not detected, Coronavirus OC43 (PCR) Not detected, Coronavirus HKU1 (PCR) Not detected, Coronavirus 229E (PCR) Not detected, SARS-CoV-2 (PCR) Not detected, Coronavirus NL63 (PCR) Not detected, Human Metapneumovir PCR Not detected, Influenza A (H1) PCR Not detected, Influ A (H1N1/09) PCR Not detected, Influenza A (H3) PCR Not detected, Influenza Type A (PCR) Not detected, Influenza Type B (PCR) Not detected, M. pneumoniae (PCR) Not detected, Parainfluenza 1 (PCR) Not detected, Parainfluenza 2 (PCR) Not detected, Parainfluenza 3 (PCR) Not detected, Parainfluenza 4 (PCR) Not detected, RSV (PCR) Not detected, Entero/Rhino (PCR) Not detected 09/26/24 13:28: Urine Color Yellow, Urine Appearance Clear, Urine pH 7.0, Ur Specific [place] 1.025, Urine Protein 2+ A, Urine Glucose (UA) Negative, Urine Ketones Negative, Urine Blood Trace-i, Urine Nitrate Negative, Urine Bilirubin 1+ A, Urine Urobilinogen 1.0, Ur Leukocyte Esterase Negative, Urine RBC Occasional, Urine WBC Occasional, Ur Squamous Epith Cells 5-10, Urine Bacteria Trace 09/27/24 06:13: WBC 17.2 H D, RBC 3.99 L, Hgb 11.2 L, Hct 34.5 L, MCV 86.5, MCH 28.1, MCHC 32.5, RDW 13.0, Plt Count 269, MPV 10.6 H, Neut % (Auto) 70.7, Lymph % (Auto) 15.9, [place] % (Auto) 8.6, Eos % (Auto) 3.7, Baso % (Auto) 0.5, Neut # (Auto) 12.1 H, Lymph # (Auto) 2.7, [place] # (Auto) 1.5 H, Eos # (Auto) 0.6 H, Baso # (Auto) 0.1, Sodium 134 L, Potassium 3.8, Chloride 104, Carbon Dioxide 23, Anion Gap 10.8, BUN 9, Creatinine 0.70, Estimated Creat Clear 188, Estimated GFR 134, Est GFR ( Amer) 162, Glucose 88, Calcium 8.1 L, Magnesium 2.3 D, Total Bilirubin 0.4, AST 40 D, ALT 20, Alkaline Phosphatase 101, Total Protein 6.7, Albumin 3.5, Globulin 3.2, Albumin/Globulin Ratio 1.1 I & O for Last 24 hours: Intake & Output 09/24/24 09/25/24 09/26/24 09/27/24 11:59 11:59 11:59 11:59 Intake Total 1540 3963 2110 Output Total 300 0 0 Balance 1240 3963 2110 Weight 181.437 kg 185.576 kg 186.744 kg 84.704 kg Microbiology Reports for the Last 24 Hours: Microbiology 09/26/24 08:36 Blood Blood Culture - Preliminary NO GROWTH AFTER 24 HOURS 09/26/24 08:32 Blood Blood Culture - Preliminary NO GROWTH AFTER 24 HOURS Constitutional Constitutional: no acute distress and obese *Routine HEENT Exam Head: Present normocephalic and atraumatic *Routine Respiratory Exam Respiratory: Present CTA bilaterally *Routine Cardiovascular Exam Cardiovascular: Present Normal S1, Normal S2 and tachycardia *Routine Abdominal Exam Abdominal: Present normoactive bowel sounds and distended (Significant distention with gas bloat) *Routine Neurological Exam Neurological: Present alert, oriented X3 and moving all extremities Assessment and Plan *Assessment and plan (1) Acute pancreatitis: Status: Acute Category: Medical Code(s): K85.90 - Acute pancreatitis without necrosis or infection, unspecified (2) Epigastric pain: Status: Acute Category: Medical Code(s): R10.13 - Epigastric pain (3) Morbid obesity with BMI of 50.0-59.9, adult: Status: Acute Category: Medical Code(s): E66.01 - Morbid (severe) obesity due to excess calories; Z68.43 - Body mass index [BMI] 50.0-59.9, adult (4) Constipation: Status: Acute Category: Medical Code(s): K59.00 - Constipation, unspecified Plan 1. Acute pancreatitis/epigastric pain/obstipation Epigastric pain near resolution. Liver enzymes normal. Has been able to eat since yesterday without nausea. No tenderness to palpation. White blood cell count improving. No fever overnight. Mild tachycardia continues. No obvious etiology for the pancreatitis. This can occur in a good number of acute pancreatitis episodes. If he has recurrence, may consider testing for autoimmune or genetic concerns. MRCP shows only uncomplicated acute pancreatitis without confounding abnormalities. Has not had a bowel movement since Tuesday. Recommend starting MiraLAX today. I am happy to see him as an outpatient about after discharge.
[2024-09-27 09:53] LABS: Eosinophils % 5 % (0-3); Lymphocytes % 16 % (10-50); Monocytes % 6 % (2-9); Neutrophils % 70 % (42-76); Platelet Estimate Normal; RBC Morphology Normal; Total Cells Counted 100
[2024-09-27] MEDS: POLYETHYLENE GLYCOL 3350 17 GM PACKET PO (10:35)
--- NOTE | 2024-09-27 14:22 | EXP.DC.SUM ---
General Admission date:: 09/24/24 HPI HPI HPI: Mr. Ramírez is a 29-year-old gentleman who is admitted with acute pancreatitis. This is his first bout of pancreatitis and his symptoms began Tuesday evening. He reports epigastric and left upper quadrant abdominal pain. He presented to the emergency department last evening and his white blood cell count was 19,000. His chemistry showed a lipase of 2447. His triglycerides were 100. His serum calcium was 9.6. The patient had normal AST 26, ALT 30, alkaline phosphatase 88 and total bilirubin 0.5. The patient did have abdominal imaging with initial gallbladder ultrasound that showed no gallstones and a fatty liver/steatosis. His subsequent CAT scan showed uncomplicated pancreatitis with some diffuse pancreatic edema and surrounding stranding without pseudocyst, fluid collection or necrosis. The patient reports no alcohol use. He is not on any prescription or [id number] medication or GLP-1 medication. He has had no abdominal trauma or MVA affecting abdomen or abdominal surgery. Hospital Course Hospital Course Hospital Course: Patient is a 29-year-old who presented with abdominal pain, nausea/vomiting and admitted for acute pancreatitis. #Acute pancreatitis - Initial lipase 2447. Triglycerides 100, patient does not drink alcohol, denies any medications. Calcium normal. No recent GLP-1 use. No scorpion bite. ? GI consulted, recommended MRCP which revealed diffuse pancreatitis without cholelithiasis, choledocholithiasis, pancreatic pseudocyst/necrosis. ? Gradually improved with IV fluid hydration, and advancing diet. Patient tolerating diet without epigastric pain, nausea/vomiting. No signs of sepsis. ? Medically stable for discharge. Advised to follow-up with PCP within 2 weeks. Morbid obesity complicates all aspects of his care. Exam Data for Last 24 hours Vital signs and Labs for Last 24 Hours: Temp Pulse Resp BP Pulse Ox O2 Del Method 98.4 F 99 H 17 124/73 95 Room Air 09/27/24 08:00 09/27/24 08:00 09/27/24 08:00 09/27/24 08:00 09/27/24 08:00 09/27/24 11:00 Laboratory Results - last 24 hr 09/27/24 06:13: WBC 17.2 H D, RBC 3.99 L, Hgb 11.2 L, Hct 34.5 L, MCV 86.5, MCH 28.1, MCHC 32.5, RDW 13.0, Plt Count 269, MPV 10.6 H, Neut % (Auto) 70.7, Lymph % (Auto) 15.9, [place] % (Auto) 8.6, Eos % (Auto) 3.7, Baso % (Auto) 0.5, Neut # (Auto) 12.1 H, Lymph # (Auto) 2.7, [place] # (Auto) 1.5 H, Eos # (Auto) 0.6 H, Baso # (Auto) 0.1, Total Counted 100, Neutrophils % (Manual) 70, Band Neutrophils % 3.0, Lymphocytes % (Manual) 16, Monocytes % (Manual) 6, Eosinophils % (Manual) 5 H, Platelet Estimate Normal, RBC Morphology Normal, Sodium 134 L, Potassium 3.8, Chloride 104, Carbon Dioxide 23, Anion Gap 10.8, BUN 9, Creatinine 0.70, Estimated Creat Clear 188, Estimated GFR 134, Est GFR ( Amer) 162, Glucose 88, Calcium 8.1 L, Magnesium 2.3 D, Total Bilirubin 0.4, AST 40 D, ALT 20, Alkaline Phosphatase 101, Total Protein 6.7, Albumin 3.5, Globulin 3.2, Albumin/Globulin Ratio 1.1 I & O for Last 24 hours: Intake & Output 09/24/24 09/25/24 09/26/24 09/27/24 23:59 23:59 23:59 23:59 Intake Total 1040 / 1540 1703 / 2353 3320 / 4870 1909 Output Total 300 / 300 0 / 0 0 / 0 0 / 0 Balance 740 / 1240 1703 / 2353 3320 / 4870 1909 Weight 185.576 kg 185.576 kg 186.744 kg 84.704 kg Microbiology Reports for the Last 24 Hours: Microbiology 09/26/24 08:36 Blood Blood Culture - Preliminary NO GROWTH AFTER 24 HOURS 09/26/24 08:32 Blood Blood Culture - Preliminary NO GROWTH AFTER 24 HOURS Constitutional Constitutional: no acute distress and obese *Routine HEENT Exam Head: Present normocephalic Eye: Present EOMI and PERRL ENT: Present mucous membranes moist *Routine Neck Exam Neck: Present supple; Absent lymphadenopathy *Routine Respiratory Exam Respiratory: Present CTA bilaterally *Routine Cardiovascular Exam Cardiovascular: Present RRR *Routine Abdominal Exam Abdominal: Present soft and normoactive bowel sounds; Absent tenderness *Routine Extremities Exam Extremities: Absent cyanosis, clubbing or edema *Routine Skin Exam Skin: Present warm; Absent rash *Routine Neurological Exam Neurological: Present alert and oriented X3 Results Data Completed and Pending Labs on day of discharge: Labs from last 24 hours 09/27/24 06:13 WBC 17.2 H D RBC 3.99 L Hgb 11.2 L Hct 34.5 L MCV 86.5 MCH 28.1 MCHC 32.5 RDW 13.0 Plt Count 269 MPV 10.6 H Neut % (Auto) 70.7 Lymph % (Auto) 15.9 [place] % (Auto) 8.6 Eos % (Auto) 3.7 Baso % (Auto) 0.5 Neut # (Auto) 12.1 H Lymph # (Auto) 2.7 [place] # (Auto) 1.5 H Eos # (Auto) 0.6 H Baso # (Auto) 0.1 Total Counted 100 Neutrophils % (Manual) 70 Band Neutrophils % 3.0 Lymphocytes % (Manual) 16 Monocytes % (Manual) 6 Eosinophils % (Manual) 5 H Platelet Estimate Normal RBC Morphology Normal Sodium 134 L Potassium 3.8 Chloride 104 Carbon Dioxide 23 Anion Gap 10.8 BUN 9 Creatinine 0.70 Estimated Creat Clear 188 Estimated GFR 134 Est GFR ( Amer) 162 Glucose 88 Calcium 8.1 L Magnesium 2.3 D Total Bilirubin 0.4 AST 40 D ALT 20 Alkaline Phosphatase 101 Total Protein 6.7 Albumin 3.5 Globulin 3.2 Albumin/Globulin Ratio 1.1 Preliminary micro results at discharge 09/26/24 08:36 Blood Culture - Preliminary Blood NO GROWTH AFTER 24 HOURS 09/26/24 08:32 Blood Culture - Preliminary Blood NO GROWTH AFTER 24 HOURS DS: Diagnosis Discharge Diagnosis (1) Acute pancreatitis: Status: Acute Code(s): K85.90 - Acute pancreatitis without necrosis or infection, unspecified (2) Epigastric pain: Status: Acute Code(s): R10.13 - Epigastric pain (3) Morbid obesity with BMI of 50.0-59.9, adult: Status: Acute Code(s): E66.01 - Morbid (severe) obesity due to excess calories; Z68.43 - Body mass index [BMI] 50.0-59.9, adult (4) Constipation: Status: Acute Code(s): K59.00 - Constipation, unspecified Meds Home Medications and Allergies Home Medications ?Medication ?Instructions ?Recorded ?Confirmed ?Type No Known Home Medications 07/29/19 09/24/24 History New Prescriptions to Start Prescriptions: Allergies Allergy/AdvReac Type Severity Reaction Status Date / Time No Known Allergies Allergy Verified 09/02/20 16:41 Discharge Plan Disposition Patient Disposition: Home, Self-Care Condition: Fair Discharge Order Discharge Orders: Discharge Order (Routine); Ordered 09/27/24 Ordered By: Arcadio Zhang Follow up Plan Follow up with: Roxi Fofana APRN [Nurse Practitioner] - 10/11/24 9:15 am Prescriptions/Medication Reconciliation: No Action No Known Home Medications Problem Reconciliation Problems Reviewed?: Yes Patient Discharge Instructions Stand Alone Forms: [facility] Work Release Patient Instructions: Pancreatitis (Alternative Therapy), DI for Pancreatitis Print Language: Faroese Providers Primary Care Provider: Provider,Referral Admit Provider: Rogerio Woods Attending Provider: Rogerio Woods
[2024-09-28 13:13] LABS: CMV PCR Negative (Negative)
--- NOTE | 2024-09-28 13:13 | SW/DCPLANNER ---
Spoke with patient on the phone. Patient stated that he is doing well. Patient stated that he is aware of his upcoming appointment. Patient stated that they didnt prescribe him any new medicine to take. Patient did have a question of how long he would have to be on his high protein diet. I told patient that he needed to ask that question to his upcoming appointment when he sees GI. Patient stated that he has no other concerns or questions at this time. Sahil Wheeler
== END 2024-09-27 14:52 | disposition home or self-care (01) | DRG 439 ==
LOC: ER 08:59 → 2ND 12:28
PROVIDERS: Internal Medicine Gastroenterology; Student in an Organized Health Care Education/Training Program; Admitting Provider Internal Medicine Adolescent Medicine; Emergency Provider Student in an Organized Health Care Education/Training Program; Visit Provider Internal Medicine Adolescent Medicine
DX: K85.90 Acute pancreatitis without necrosis or infection, unspecified (principal); Z68.43 Body mass index [BMI] 50.0-59.9, adult; D72.829 Elevated white blood cell count, unspecified; E66.01 Morbid (severe) obesity due to excess calories; K59.00 Constipation, unspecified; Z80.42 Family history of malignant neoplasm of prostate
CPT/HCPCS: 36415; 71045; 74177; 74183; 76376; 76705; 80053; 80061; 81001; 82803; 83615; 83690; 83735; 84145; 85007; 85025; 85610; 85651; 86140; 86803; 87040; 87389; 87496; 87633; 87636; 99285; A9576; J1650; J2270; J2405; J3475; J7120; Q9967

== ENCOUNTER 2025-03-15 07:31 | Outpatient (CLI) | payer BC, SELFPAY ==
[2025-03-15 08:25] LABS: Hematocrit 42.0 % (42.0-52.0); Hemoglobin 13.8 g/dL (14.1-18.0); Immature Granulocytes % 0.5 %; Mean Corpuscular HGB Conc 32.9 g/dL (31.8-35.4); Mean Corpuscular Hemoglobin 27.8 pg (27.0-31.2); Mean Corpuscular Volume 84.5 fl (80-94); Nucleated Red Blood Cells % 0 %; Platelet Count 319 K/mm3 (142-424); Red Blood Count 4.97 M/mm3 (4.60-6.20); Red Cell Distribution Width-SD 41.3 fL; White Blood Count 10.9 K/mm3 (4.8-10.8)
[2025-03-15 08:50] LABS: Hemoglobin A1C 5.5 % (4.0-6.0)
[2025-03-15 12:28] LABS: Alanine Aminotransferase 31 U/L (12-78); Albumin Level 4.3 g/dl (3.5-5.0); Albumin/Globulin Ratio 1.7 (1.1-1.8); Alkaline Phosphatase 105 U/L (38-126); Anion Gap 11.4 mEq/L (5-15); Aspartate Amino Transferase 31 U/L (17-59); Bilirubin,Total 0.4 mg/dl (0.2-1.3); Blood Urea Nitrogen 11 mg/dl (9-20); Calcium 9.3 mg/dl (8.4-10.2); Carbon Dioxide 25 mmol/L (22.0-30.0); Chloride 106 mmol/L (98-107); Cholesterol 181 mg/dl (140-200); Creatinine,Serum 0.60 mg/dl (0.66-1.25); Estimated Glomerular Filt Rate 160 ml/min (>60); GFR (African American) 194 ML/MIN (>60); Globulin 2.6 g/dL (1.3-3.2); Glucose 86 mg/dl (74-100); HDL Cholesterol 31 mg/dl (40-60); Lipase 84 U/L (23-300); Potassium 4.4 mmoL/L (3.5-5.1); Sodium 138 mmol/L (136-145); Total Protein,Serum 6.9 g/dl (6.3-8.2); Triglycerides 197 mg/dl (30-150)
== END 2025-03-15 23:59 | disposition home or self-care (01) ==
LOC: LAB 07:32
PROVIDERS: PCP Internal Medicine Adolescent Medicine; Visit Provider Internal Medicine Adolescent Medicine
DX: Z09 Encounter for follow-up examination after completed treatment for conditions other than malignant neoplasm (principal); Z87.19 Personal history of other diseases of the digestive system; Z83.3 Family history of diabetes mellitus; Z82.3 Family history of stroke
CPT/HCPCS: 36415; 80053; 80061; 83036; 83690; 85025